=== PATIENT | male | born 1945 | race Two or more races ===

== ENCOUNTER 2020-06-11 07:34 | Day surgery (SDC) | payer OTHER | END 2020-06-11 13:10 | disposition home or self-care (01) | LOC: AMB-ENDOS 07:34 | PROVIDERS: ATTEND Surgery | DX: D12.2 Benign neoplasm of ascending colon (principal); Z20.822 Contact with and (suspected) exposure to COVID-19; Z12.11 Encounter for screening for malignant neoplasm of colon ==